=== PATIENT | male | born 1980 | race Caucasian/White ===

== ENCOUNTER 2021-04-27 10:59 | Outpatient (CLI) | payer BC ==
[2021-04-27 23:43] LABS: SARS-CoV-2 PCR by NAA Not Detected (NotDetected)
== END 2021-04-27 11:00 | disposition home or self-care (01) ==
LOC: LABBT 10:59
PROVIDERS: ATTEND Orthopaedic Surgery
DX: Z01.812 Encounter for preprocedural laboratory examination (principal); Z20.822 Contact with and (suspected) exposure to COVID-19
CPT/HCPCS: U0003; U0005

== ENCOUNTER 2021-04-30 12:26 | Day surgery (SDC) | payer BC ==
[2021-04-29 12:13] VITALS: BMI 33.9
[2021-04-30] MEDS ORDERED: ceFAZolin 2 GM/DEX 5% 100 ML BAG ONE ×2 (14:22)
[2021-04-30] MEDS ORDERED: Fentanyl 100 MCG/2 ML VIAL ONE ×2 (14:25→16:34)
[2021-04-30] MEDS ORDERED: Dexamethasone 20 MG/5 ML VIAL ONE (14:45)
[2021-04-30] MEDS ORDERED: Lidocaine 1% PF 5 ML VIAL ONE (14:45)
[2021-04-30] MEDS ORDERED: Ondansetron PF 4 MG/2 ML Vial ONE (14:45)
[2021-04-30] MEDS ORDERED: Ketorolac Tromethamine 30 MG/ML VIAL ONE (14:45)
[2021-04-30] MEDS ORDERED: PROPOFOL 200 MG/20 ML VIAL ONE (14:45)
== END 2021-04-30 18:21 | disposition home or self-care (01) ==
LOC: SDC 12:26
PROVIDERS: ATTEND Orthopaedic Surgery
PROC: 0RNL0ZZ Release Right Elbow Joint, Open Approach (ICD-10-PCS; principal; 2021-04-30)
PROC: 0RPL04Z Removal of Internal Fixation Device from Right Elbow Joint, Open Approach (ICD-10-PCS; principal; 2021-04-30)
DX: M24.621 Ankylosis, right elbow (principal); T84.84XA Pain due to internal orthopedic prosthetic devices, implants and grafts, initial encounter; Y79.1 Therapeutic (nonsurgical) and rehabilitative orthopedic devices associated with adverse incidents
CPT/HCPCS: 76000; J1100; J1885; J2405; J2704; J3010